=== PATIENT | male | born 1990 | race Hispanic/Latino ===

== ENCOUNTER → 2020-01-24 08:17 | Outpatient (CLI) | payer OTHER, SELFPAY ==
[2020-01-26 19:18] LABS: COVID19 Sendout Not Detected (Not Detect)
== END ==
PROVIDERS: Family Provider General Practice; PCP General Practice; Visit Provider Physician Assistant
DX: Z01.818 Encounter for other preprocedural examination (principal)
CPT/HCPCS: 87635

== ENCOUNTER → 2020-08-14 13:11 | Outpatient (ROUT) | payer OTHER, SELFPAY ==
[2020-08-14 13:32] LABS: COVID19 -Nasal RAPID Negative (Negative)
== END ==
PROVIDERS: Family Provider General Practice; PCP General Practice; Visit Provider Family Medicine
DX: Z20.822 Contact with and (suspected) exposure to COVID-19 (principal)
CPT/HCPCS: 87635

== ENCOUNTER → 2020-10-05 13:32 | Outpatient (CLI) | payer OTHER, SELFPAY ==
--- NOTE | 2020-10-05 13:39 | DI.RAD.S_ITS ---
PROCEDURE: XR HAND RT MIN 3V INDICATIONS: right middle finger trauma TECHNIQUE: 3 views of the hand(s) acquired. COMPARISON: None. FINDINGS: Bones: There is a comminuted fracture involving the tip of the 3rd distal phalanx with mild volar displacement of the distal fracture fragment. Carpal bones are normally aligned. No suspicious bony lesions. Soft tissues: No suspicious soft tissue calcifications. Soft tissue contusion and laceration of the distal 3rd finger. IMPRESSION: Comminuted fracture of the tip of the 3rd distal phalanx. Dictated by: Caryn Damon M.D. on 10/05/2020 at 15:21 Approved by: Caryn Damon M.D. on 10/05/2020 at 15:23
== END ==
PROVIDERS: Family Provider General Practice; PCP General Practice; Referring Provider Family Medicine; Visit Provider Family Medicine
DX: S62.634A Displaced fracture of distal phalanx of right ring finger, initial encounter for closed fracture (principal)
CPT/HCPCS: 73130